=== PATIENT | female | born 1970 | race African-American/Black ===

== ENCOUNTER 2016-06-21 04:18 | Emergency (ER) | payer BC ==
[~2016-06-21] VITALS: Ht 167.6 cm; Wt 163.6 kg
[2016-06-21 04:21] VITALS: BP 189/93; TEMP 98.2
[2016-06-21] MEDS ORDERED: LEVEMIR100 U/ML SQ (04:44)
[2016-06-21] MEDS ORDERED: NOVOLOGMIX70/30 SQ (04:45)
[2016-06-21] MEDS ORDERED: PRINIVIL40 MG PO (04:46)
[2016-06-21] MEDS ORDERED: INVOKAMET1 (04:46)
[2016-06-21] MEDS ORDERED: CYMBALTA 60MG60 MG PO (04:47)
[2016-06-21] MEDS ORDERED: NAPROSYN500 MG PO (04:47)
[2016-06-21] MEDS ORDERED: FLEXERIL 1010 MG/TAB PO (04:55)
[2016-06-21 06:21] VITALS: PULSE 88
== END 2016-06-21 06:21 | disposition home or self-care (01) ==
LOC: COL.ER 04:18
DX: M54.32 Sciatica, left side (principal); E11.9 Type 2 diabetes mellitus without complications; Z79.4 Long term (current) use of insulin; I10 Essential (primary) hypertension; J45.909 Unspecified asthma, uncomplicated
CPT/HCPCS: J1170